=== PATIENT | male | born 1970 | race African-American/Black ===

== ENCOUNTER 2016-10-10 12:15 | Emergency (ER) | payer OTHER ==
[~2016-10-10] VITALS: Ht 172.7 cm; Wt 108.9 kg
[2016-10-10 12:54] LABS: BASO # 0.1 x10^3/uL (0.0-0.2); BASO % 1 % (0-3); EOS % 3 % (0-3); HEMATOCRIT 35.2 % (39.0-53.0); HEMOGLOBIN 12.3 g/dL (13.0-17.5); LYMPH # 3.6 x10^3/uL (1.0-4.8); LYMPH % 32 % (24-48); MEAN CORPUSCULAR HEMOGLOBIN 27 pg (25-35); MEAN CORPUSCULAR HGB CONC 35 g/dL (31-37); MEAN CORPUSCULAR VOLUME 78 fL (79-100); MONO % 8 % (0-9); NEUT % 56 % (31-73); PLATELET COUNT 343 x10^3/uL (140-400); RED BLOOD COUNT 4.52 x10^6/uL (4.30-5.70); RED CELL DISTRIBUTION WIDTH 16.4 % (11.5-14.5); WHITE BLOOD COUNT 11.2 x10^3/uL (4.0-11.0)
--- NOTE | 2016-10-10 12:54 | RAD ---
Chest, 2 views, 10/10/2016: History: Right-sided chest pain Comparison is made to a study from 06/22/2009. The heart size and pulmonary vascularity are normal. No pulmonary infiltrates are seen. There is no evidence of pleural fluid. IMPRESSION: No acute cardiopulmonary abnormality is detected.
[2016-10-10] MEDS ORDERED: KETOROLAC TROMETHAMINE 30 MG/ML INJ. IV ONE (13:00)
[2016-10-10] MEDS ORDERED: IV NORMAL SALINE 1000ML BAG 1,000 ML IV ONE (13:00)
[2016-10-10] MEDS ORDERED: ASPIRIN CHEWABLE 81 MG TABLET. PO ONE (13:00)
[2016-10-10 13:03] LABS: CALCIUM 8.7 mg/dL (8.5-10.1); CREATININE 1.1 mg/dL (0.7-1.3); POTASSIUM 3.6 mmol/L (3.5-5.1)
--- NOTE | 2016-10-10 13:16 | PHYS DOC ---
Past Medical History Past Medical History: GERD, Sickle Cell Disease, Other Additional Past Medical Histor: "seasonal allergies" Past Surgical History: No Surgical History Alcohol Use: None Drug Use: None Adult General Chief Complaint Chief Complaint: CHEST WALL PAIN [facility] HPI Patient is a 46 year old male who presents with complaints of right-sided chest pain, the pain causing shortness of breath, no diaphoresis. He tried to walk it off but the pain wasn't going away so he came into to get checked out. Patient has history of "borderline sickle cell". Patient has a primary care provider but does not have a rn iv therapy. Patient has been in his usual state of health up until today. Patient denies any fevers, chills, neck pain, arm pain , back pain, abdominal pain, leg swelling or leg pain. Review of Systems Review of Systems Constitutional: Denies fever or chills [] Eyes: Denies change in visual acuity, redness, or eye pain [] HENT: Denies nasal congestion or sore throat [] Respiratory: Denies cough or shortness of breath [] Cardiovascular: No additional information not addressed in HPI [] GI: Denies abdominal pain, nausea, vomiting, bloody stools or diarrhea [] : Denies dysuria or hematuria [] Musculoskeletal: Denies back pain or joint pain [] Integument: Denies rash or skin lesions [] Neurologic: Denies headache, focal weakness or sensory changes [] Endocrine: Denies polyuria or polydipsia [] Current Medications Current Medications Current Medications Medications (Trade) Dose Ordered Sig/[facility] Start Time Stop Time Status Last Admin Dose Admin Aspirin (Children'S Aspirin) 324 mg 1X ONCE 10/10/16 13:00 10/10/16 13:00 DC Ketorolac Tromethamine (Toradol) 30 mg 1X ONCE 10/10/16 13:00 10/10/16 13:01 DC 10/10/16 13:02 30 MG Sodium Chloride 1,000 ml @ 1,000 mls/hr 1X ONCE 10/10/16 13:00 10/10/16 13:59 DC 10/10/16 13:02 1,000 MLS/HR Allergies Allergies Allergies Coded Allergies Type Severity Reaction Last Updated Verified prednisone Allergy Intermediate "severe bone pain" 10/10/16 Yes Physical Exam Physical Exam Constitutional: Well developed, well nourished, no acute distress, non-toxic appearance. [] HENT: Normocephalic, atraumatic,oropharynx dry, no oral exudates, nose normal. [ ] Eyes: PERRLA, EOMI, conjunctiva normal, no discharge. [] Neck: Normal range of motion, no tenderness, supple, no stridor. [] Cardiovascular:Heart rate regular rhythm, no murmur, normal perfusion Lungs & Thorax: Bilateral breath sounds clear to auscultation [] Abdomen: Bowel sounds normal, soft, no tenderness, no masses, no pulsatile masses. [] Skin: Warm, dry, no erythema, no rash. [] Back: No tenderness, no CVA tenderness. [] Extremities: No tenderness, no cyanosis, no clubbing, ROM intact, no edema. No signs of DVT Neurologic: Alert and oriented X 3, patient ambulates with normal gait without assistance in the ED, no focal deficits noted. [] Psychologic: Affect normal, judgement normal, mood normal. [] Current Patient Data Vital Signs Vital Signs Date Time Temp Pulse Resp B/P (MAP) Pulse Ox O2 Delivery O2 Flow Rate FiO2 10/10/16 12:33 98.1 83 16 42/86 (71) 96 Room Air 98.1 Lab Values Laboratory Tests Test 10/10/16 12:40 10/10/16 15:22 White Blood Count 11.2 x10^3/uL (4.0-11.0) H Red Blood Count 4.52 x10^6/uL (4.30-5.70) Hemoglobin 12.3 g/dL (13.0-17.5) L Hematocrit 35.2 % (39.0-53.0) L Mean Corpuscular Volume 78 fL (79-100) L Mean Corpuscular Hemoglobin 27 pg (25-35) Mean Corpuscular Hemoglobin Concent 35 g/dL (31-37) Red Cell Distribution Width 16.4 % (11.5-14.5) H Platelet Count 343 x10^3/uL (140-400) Neutrophils (%) (Auto) 56 % (31-73) Lymphocytes (%) (Auto) 32 % (24-48) Monocytes (%) (Auto) 8 % (0-9) Eosinophils (%) (Auto) 3 % (0-3) Basophils (%) (Auto) 1 % (0-3) Neutrophils # (Auto) 6.3 x10^3uL (1.8-7.7) Lymphocytes # (Auto) 3.6 x10^3/uL (1.0-4.8) Monocytes # (Auto) 0.8 x10^3/uL (0.0-1.1) Eosinophils # (Auto) 0.3 x10^3/uL (0.0-0.7) Basophils # (Auto) 0.1 x10^3/uL (0.0-0.2) Reticulocyte Count (auto) 3.3 % (0.5-2.5) H Sodium Level 143 mmol/L (136-145) Potassium Level 3.6 mmol/L (3.5-5.1) Chloride Level 107 mmol/L (98-107) Carbon Dioxide Level 29 mmol/L (21-32) Anion Gap 7 (6-14) Blood Urea Nitrogen 9 mg/dL (8-26) Creatinine 1.1 mg/dL (0.7-1.3) Estimated GFR (Cockcroft-Gault) 88.0 Glucose Level 100 mg/dL (70-99) H Calcium Level 8.7 mg/dL (8.5-10.1) Troponin I Quantitative < 0.017 ng/mL (0.000-0.055) POC Troponin I 0.00 ng/ml (<0.08) Laboratory Tests 10/10/16 12:40 Laboratory Tests 10/10/16 12:40 EKG EKG 80, sinus rhythm, no STEMI, EP interpretation at 1240 [] Radiology/Procedures Radiology/Procedures no acute findings[] History: Right-sided chest pain Comparison is made to a study from 06/22/2009. The heart size and pulmonary vascularity are normal. No pulmonary infiltrates are seen. There is no evidence of pleural fluid. IMPRESSION: No acute cardiopulmonary abnormality is detected. Course & Med Decision Making Course & Med Decision Making Pertinent Labs and Imaging studies reviewed. (See chart for details) I have reevaluated the patient, the patient is in no distress, vital signs are unremarkable. Given the physical exam, vital signs, lab findings I do not feel that the patient is in need for inpatient relation at this time. My suspicion for a significant infectious, vascular, cardiac, pulmonary event is very low at the time of this ED the evaluation. Patient feels that he is at his baseline now and wishes to leave home. We will repeat a second i-STAT troponin. If that is negative, the patient will be discharged home and he has a PCP He can follow- up with. Patient will be discharged in stable and improved condition. 1552 istat troponin negative Dragon Disclaimer Dragon Disclaimer This electronic medical record was generated, in whole or in part, using a voice recognition dictation system. Departure Departure Impression: Primary Impression: Chest pain of uncertain etiology Additional Impression: Dehydration Disposition: 01 HOME, SELF-CARE Condition: IMPROVED Referrals: MIKE WELCH (PCP) please follow up with your pcp in one day for recheck and re-evaluation. Please request referral to hematology for consultation Patient Instructions: Chest Pain (Nonspecific), [id number], Dehydration, Adult, [id number] Problem Qualifiers Johanne DONALDSON MD Oct 10, 2016 13:16
--- NOTE | 2016-10-10 15:20 | EKG ---
[facility] [address] [place] [address] Test Date: 2016-10-10 Test Time: 12:35:29 Pat Name: MOY SALGUERO Department: Room: Gender: M [employer]: : [id number] Requested By: Johanne DONALDSON Order Number: [id number] Reading MD: Rolan Michael Measurements Intervals [place] Rate: 80 P: 28 [place]: 168 QRS: 15 QRSD: 82 T: 15 QT: 358 QTc: 416 Interpretive Statements SINUS RHYTHM Electronically Signed On 10-13-2016 14:58:18 CDT by Rolan Michael
[2016-10-10 15:30] VITALS: BP 129/85
== END 2016-10-10 15:40 | disposition home or self-care (01) ==
LOC: ER 12:15
DX: R07.9 Chest pain, unspecified (principal); E86.0 Dehydration; K21.9 Gastro-esophageal reflux disease without esophagitis
CPT/HCPCS: 36415; 71020; 80048; 84484; 85027; 85045; 93005; 96361; 96374; 99285; J1885; J7030